=== PATIENT | female | born 1940 | race Caucasian/White ===

== ENCOUNTER 2016-10-23 15:55 | Emergency (ER) | payer OTHER ==
[~2016-10-23] VITALS: Ht 158.8 cm; Wt 122.4 kg
[~2016-10-23 15:55] MED LIST: AMIODARONE HCL200 MG PO; AMIODARONE HCL400 MG PO; ASPIR 8181 M1 PO; ASPIR-LOW81 MG PO; ATORVASTATIN CA10 MG PO; CALCIUM 600 +1 EAC5 PO; DIAMOX250 MG PO; DIGITEK250 MC2 PO; DIGOXIN250 MCG PO; DUONEB 2.5-0.5 M3 ML AEROSOL; ELIQUIS5 MG PO; KLOR-CON M2020 MEQ PO; LASIX40 MG PO; LEVAQUIN500 MG PO; LISINOPRIL5 MG PO; LOPRESSOR25 MG PO; LOSARTAN POTASS50 MG PO; METOPROLOL TART25 MG PO; OMEPRAZOLE20 MG PO; OMEPRAZOLE40 M1 PO; OXYGEN MC; PRAVASTATIN SOD40 MG PO; TRAMADOL HCL50 MG PO; ULTRAM50 MG PO; VERAPAMIL HCL240 MG PO
[2016-10-23 16:31] LABS: HEMATOCRIT 39.4 % (36.0-46.0); MCH 25.5 PG (29.0-34.0); MCHC 31.5 G/DL (30.0-36.0); MCV 80.9 FL (83-99); MEAN PLAT.VOLUME 9.5 uM^3 (9.5-12.4); PLATELET COUNT 237 K/uL (156-360); RBC DIS.WIDTH-CV 13.9 % (11.8-14.6); RBC DIS.WIDTH-SD 40.9 % (39-53); RED BLOOD COUNT 4.87 M/uL (3.80-5.20); WHITE BLOOD COUNT 9.2 K/uL (4.1-10.2)
[2016-10-23 16:40] LABS: CHLORIDE 108 mEq/L (99-109); INTER. NORMALIZED RATIO 1.1; POTASSIUM 3.8 mEq/L (3.7-5.4); PROTHROMBIN TIME 11.4 (9.2-11.2); SODIUM 139 mEq/L (136-147)
[2016-10-23 16:41] LABS: GLUCOSE 111 mg/dL (70-99)
[2016-10-23 16:43] LABS: ANION GAP 10 MEQ/L (2-14)
[2016-10-23 16:45] LABS: GFR ESTIMATE (CALCULATED) > 59 mL/min/
[2016-10-23 16:46] LABS: UREA NITROGEN (BUN) 13 mg/dL (9-23)
[2016-10-23] MEDS ORDERED: ZOFRAN4 MG PO (18:24)
[2016-10-23] MEDS ORDERED: PERCOCET 5/31 TABLET PO (18:24)
[2016-10-23 18:40] VITALS: BP 152/77
== END 2016-10-23 18:41 | disposition home or self-care (01) ==
LOC: EME → EDBD 15:55 → EME 18:41
PROVIDERS: Emergency Medicine
DX: S42.291A Other displaced fracture of upper end of right humerus, initial encounter for closed fracture (principal); R51 Headache; E78.5 Hyperlipidemia, unspecified; I50.9 Heart failure, unspecified; W01.0XXA Fall on same level from slipping, tripping and stumbling without subsequent striking against object, initial encounter; Y93.01 Activity, walking, marching and hiking
CPT/HCPCS: 70450; 71010; 73060; 73080; 80048; 85027; 85610; 99281; 99284